=== PATIENT | male | born 1985 | race Caucasian/White ===

== ENCOUNTER 2016-08-19 11:32 | Emergency (ER) | payer OTHER ==
[~2016-08-19] VITALS: Ht 175.3 cm; Wt 132.9 kg
[2016-08-19 13:01] VITALS: BP 147/89
== END 2016-08-19 13:01 | disposition home or self-care (01) ==
LOC: ED 11:32
DX: H66.91 Otitis media, unspecified, right ear (principal); R03.0 Elevated blood-pressure reading, without diagnosis of hypertension
CPT/HCPCS: J2001

== ENCOUNTER 2016-08-26 10:21 | Emergency (ER) | payer OTHER ==
[~2016-08-26] VITALS: Ht 175.3 cm; Wt 131.5 kg
[2016-08-26 15:04] VITALS: BP 142/81
== END 2016-08-26 15:04 | disposition home or self-care (01) ==
LOC: ED 10:21
DX: H60.501 Unspecified acute noninfective otitis externa, right ear (principal); Z79.899 Other long term (current) drug therapy